=== PATIENT | female | born 1955 | race Caucasian/White ===

== ENCOUNTER 2020-08-24 03:20 | Emergency (ER) | payer OTHER ==
[~2020-08-24] VITALS: Ht 154.9 cm; Wt 97.0 kg
[~2020-08-24 03:20] MED LIST: ATIVAN1 MG PO; COLACE100 MG PO; IBUPROFEN 400400 M2 PO; LEVAQUIN 500 M500 M2 PO; LIORESAL 10 MG10 MG PO; MIRALAX17 GM PO; MUCINEX600 MG PO; NEURONTIN600 MG PO; OSELB75 PO; OXYCONTIN10 M1 PO; TRAMADOL 50 MG50 MG PO; TYLENOL325 MG PO
[2020-08-24] MEDS ORDERED: ORPHENADRINE C100 M2 PO (05:25)
[2020-08-24] MEDS ORDERED: PREDNISONE50 MG PO (05:25)
[2020-08-24] MEDS ORDERED: ULTRAM 50MG TAB50 MG PO (05:25)
[2020-08-24 06:21] VITALS: BP 141/99
== END 2020-08-24 06:26 | disposition home or self-care (01) ==
LOC: ER 03:20
DX: M25.511 Pain in right shoulder (principal); M25.552 Pain in left hip; Z79.1 Long term (current) use of non-steroidal anti-inflammatories (NSAID); Z79.899 Other long term (current) drug therapy; Z88.0 Allergy status to penicillin; Z88.8 Allergy status to other drugs, medicaments and biological substances